=== PATIENT | male | born 1995 | race Caucasian/White ===

== ENCOUNTER 2017-08-24 22:42 | Emergency (ER) | payer SELFPAY ==
[~2017-08-24] VITALS: Ht 185.4 cm; Wt 76.1 kg
[2017-08-24 22:44] VITALS: BP 114/73
[2017-08-24] MEDS ORDERED: FAMOTIDINE 20 MG TABLET ONE (23:09)
[2017-08-24] MEDS ORDERED: FAMOTIDINE 20 MG TABLET PO ONE (23:30)
== END 2017-08-25 00:21 | disposition home or self-care (01) ==
LOC: ED 23:35
DX: S46.911A Strain of unspecified muscle, fascia and tendon at shoulder and upper arm level, right arm, initial encounter (principal); L50.9 Urticaria, unspecified; X58.XXXA Exposure to other specified factors, initial encounter; Y93.89 Activity, other specified; Y92.89 Other specified places as the place of occurrence of the external cause; Y99.8 Other external cause status
CPT/HCPCS: 73030; 99284; Q0177